=== PATIENT | male | born 1950 | race Caucasian/White ===

== ENCOUNTER 2018-07-16 10:44 | Inpatient (IN) ==
[2018-07-16] MEDS ORDERED: *HR* FentaNYL (PF) 100 MCG/2 ML VIAL ONE (10:58)
[2018-07-16] MEDS ORDERED: *HR* Succinylcholine 200 MG/10 ML VIAL IVP ONE (10:58)
[2018-07-16] MEDS ORDERED: *HR* Propofol 200 MG/20 ML VIAL IVP ONE (10:58)
[2018-07-16] MEDS ORDERED: *HR* Rocuronium Bromide 50 MG/5 ML VIAL ONE ×2 (10:58→16:19)
[2018-07-16] MEDS ORDERED: Lidocaine -MPF 2% 2 ML VIAL ONE (10:58)
[2018-07-16] MEDS ORDERED: Ondansetron 4 MG/2 ML VIAL ONE (10:58)
[2018-07-16] MEDS ORDERED: Dexamethasone 4 MG/ML VIAL ONE (10:58)
[2018-07-16] MEDS ORDERED: *HR* Midazolam HCl 2 MG/2 ML VIAL ONE (10:58)
--- NOTE | 2018-07-16 10:58 | Anesthesia Evaluation PreOp ---
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: Other (depression, anxiety) Other Medical History: Other (gastric ulcer) Anesthesia History: No Prior Anesthetic Complications, Past Anesthesia ( prostate bx, eye, back, carpal tunnel) Alcohol Use: none Drug use: marijuana Medications and Allergies Alprazolam [Xanax] 2 mg PO QID PRN 05/29/18 [History] Atorvastatin [Lipitor] 40 mg PO HS 05/29/18 [History] Escitalopram [Lexapro] 20 mg PO DAILY 05/29/18 [History] HYDROcodone/Acet 5/325 mg [[place] 5-325 mg] 1 tab PO Q4H PRN 3 Days #10 tab 05/29 [Rx] Levofloxacin [Levaquin] 500 mg PO DAILY #3 tablet 05/29/18 [Rx] Omeprazole [PriLOSEC] 20 mg PO DAILY 05/29/18 [History] 3 Allergy/AdvReac Type Severity Reaction Status Date / Time Sulfa (Sulfonamide AdvReac Itching Verified 07/03/18 14:01 Antibiotics) - Meds/Allergy Pre-op Review Medications Reviewed: Yes Allergies Reviewed: Yes Beta Blockers on Current Med List: No Anesthesia Results - Labs Laboratory Tests 05/21/18 07/03/18 13:50 14:07 WBC 7.0 Hgb 14.2 Hct 41.3 Plt Count 244 Sodium 138 Potassium 3.6 Chloride 106 Carbon Dioxide 27 BUN 10 Anesthesia Exam O2 Sat Height 1.8 m Height 1.8 m Weight 97.069 kg Weight 97.069 kg O2 Sat by Pulse Oximetry 95 Vital Signs Temp Pulse Resp BP Pulse Ox 98.1 F 74 18 108/76 95 07/16/18 11:00 07/16/18 11:00 07/16/18 11:00 07/16/18 11:00 07/16/18 11:00 Height: 5'11" Weight: 214lbs NPO (# of Hours): >8 - HEENT Pupil (Motor): Pupils equal, EOMI Mallampati: III (full bermeo) Teeth: Edentulous Oral Opening: Greater than 3 - 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
[2018-07-16] MEDS ORDERED: Acetaminophen IV 1,000 MG/100 ML INFUS..BTL ONE (11:09)
[2018-07-16] MEDS ORDERED: *HR* Morphine 2 MG/ML SYRINGE IVP PRN (11:18)
[2018-07-16] MEDS ORDERED: Ondansetron 4 MG/2 ML VIAL IVP ONE (11:18)
[2018-07-16] MEDS ORDERED: *HR* Promethazine 25 MG/ML VIAL IVP PRN (11:18)
[2018-07-16] MEDS ORDERED: Dexamethasone 4 MG/ML VIAL IVP ONE (11:18)
[2018-07-16] MEDS ORDERED: *HR* Labetalol 100 MG/20 ML MDV IVP PRN (11:18)
[2018-07-16] MEDS ORDERED: Albuterol 2.5 MG/3 ML NEBULIZER IH ONE (12:01)
[2018-07-16] MEDS ORDERED: CeFAZolin Syr 2,000MG/20 ML 2,000 MG/20 ML SYRINGE IVPB ONE (12:01)
[2018-07-16] MEDS ORDERED: Ringers Solution, Lactated 1,000 ML IVC SCH (12:15)
--- NOTE | 2018-07-16 13:10 | History & Physical Report ---
Date of Encounter: 07/16/18 Time of Encounter: 13:09 24 Hour HP Update - Instructions Instructions: If the History and Physical is less than 30 days old and was completed prior to A.M. admission and or procedure and has NOT been updated on calendar day of procedure please complete this update prior to performing procedure. - Update Patient reports changes in Medical Condition: No Changes in examination, assessment, or condition: No Changes in Medication: No Preop tests/diagnostics Reviewed: Yes Surgery Remains Indicated: Yes Consent for Planned Operative Procedure(s) Verified: Yes - Pre-Operative Checklist Preoperative Checklist Indicated: Yes Prophylactic Antibiotic Ordered: Yes Home Medications Include Beta Cassie: No Is VTE Prophylaxis Indicated?: Yes
[2018-07-16] MEDS ORDERED: Neostigmine Methylsulfate 3 MG/3 ML SYRINGE ONE (15:07)
[2018-07-16] MEDS ORDERED: *HR* Morphine 10 MG/ML VIAL ONE (15:07)
--- NOTE | 2018-07-16 18:52 | Operative Note ---
Date of procedure: 07/16/18 Pre-op diagnosis: Benign prostatic hyperplasia with lower urinary tract symptoms Post-op diagnosis: same Procedure: Robotic assisted suprapubic prostatectomy. Implants: 22-Tunisian 3-way catheter, 19-Tunisian Bahman drain Complications: None Anesthesia: GETA Surgeon: Aaron Martinez Was there an autopsy assistant present: Yes Residential Pest Control Technician: Terell Alaniz Residential Pest Control Technician Other: Zoë Palmer Estimated blood loss (cc): 500 Specimen: prostate Condition: stable Disposition: PACU Procedure in Detail: Indications: Mr. June is a 68-year-old gentleman who has a history of BPH and lower urinary tract symptoms. He did have an elevated PSA with an MRI the prostate showing a 143 mL gland. He had a prostate biopsy which was benign. He has severe urinary symptoms and wishes to proceed with a robotic-assisted suprapubic prostatectomy. He is aware of the risks of the surgery which include but are not limited to bleeding, infection, injury or structures, need for further procedures, bladder neck contracture, urethral stricture, possible spread of prostate cancer, urinary incontinence, detrusor overactivity, urine leak, and the risk of anesthesia. He is willing to proceed. PROCEDURE: After informed consent was obtained, the patient was taken to the operating room, placed supine on the table. He was given IV antibiotics for antibiotic coverage. He had LEANNA's and SCD's placed on the lower extremities for DVT prophylaxis. Induction of general anesthesia was performed. The arms were tucked and he was placed in lithotomy position. He was secured to the OR table with padding. An 18 Tunisian Chung catheter was placed. A 5 mm incision was made for our autopsy assistant port in the left upper quadrant. The Veress needle was introduced. The water drop test passed. Pneumoperitoneum was initiated with low pressures initially. The abomen was insufflated. I then placed a 5mm camera port through this incision using the visual obturator and the 5 mm laparoscopic camera.. Once the trocar was in place, I assessed the abdomen. He previously had a midline incision. There was adhesions along the midline. I robotic port was placed lateral to the umbilicus as well as in the left lower quadrant. Using sharp dissection the adhesions were taken down. The other robotic ports were placed 2 along the right side. The left lower quadrant port was exchanged for the air seal. Once all the adhesions were taken down the robot was brought in and docked to the patient. The bipolar [place] was in the left robotic arm and the Prograsp in the 4th arm. We initially retracted the bowel with the 4th arm. The medial umbilical ligaments were cauterized and the bladder was taken down off the anterior abdominal wall using electrocautery. The bladder was then grasped with a 4th arm and retracted cephalad. We then swept the periprostatic fat off the prostate as well as the pelvic sidewall. The bladder neck was identified. I made my incision approximately 2 cm proximal from the bladder neck. The bladder was entered and opened fully and a transverse fashion. The catheter was identified below. A 2-0 Vicryl suture was placed along the posterior bladder neck to provide anterior traction. The ureteral orifices were identified. Incision was made around the bladder neck. The prostate was dissected out and enucleated. There was a fair amount of bleeding during this time. I eventually had to cut the prostate in half along the anterior commissure. This allowed me to remove the left lateral lobe as well as the right lateral lobe. There was not a significant median lobe. Once the prostate was removed we proceeded to bring the bladder neck down to the urethra. Using a 30 V-Leticia suture I brought the posterior bladder neck down to the urethra. The pedicles were closed on the left side with a 30 V-Leticia suture in a [id number] fashion. The right pedicle was not bleeding at all. No stitch was placed. I then identified a tear within the anterior prosthetic capsule. This was run closed using a 3-0 Vicryl suture in a running fashion. This appeared to be watertight. The bladder was closed in 2 layers using a V-Leticia suture for the bladder urothelial layer. In addition a 2-0 V-Leticia suture was used for the muscle layer. I placed a 22-Tunisian 3-way catheter but had difficulty. Ultimately, I placed a Berenstein catheter which entered the bladder. A wire was placed. The Chung was placed over top of the wire. 45 mL was instilled in the balloon. The catheter irrigated clear. The bladder was irrigated. No leak was identified. A 19 Tunisian Bahman drain was placed through the trocar down into the pelvis. The trocar was removed and drain sewn in place with a suture. the prostate was placed in an Endo Catch bag. The robot was then undocked from the patient. the string from the Endo Catch bag was brought to the umbilical port. After extending the incision slightly with the electrocautery the EndoCatch bag was then removed from the camera port. The abdominal fascia was then closed in running fashion with 0 Vicryl suture. All incisions were instilled with 0.25% Marcaine. The remaining trocars were removed under direct vision and all incisions were then closed with 4-0 Monocryl in subcuticular fashion. The patient was then awakened from general anesthesia and brought to the recovery room in good condition. All sponge, needle, and instrument counts were correct.
[2018-07-16] MEDS ORDERED: Acetaminophen 325 MG TABLET PO PRN (19:52)
[2018-07-16] MEDS ORDERED: Ondansetron 4 MG/2 ML VIAL IVP PRN (19:52)
[2018-07-16] MEDS ORDERED: Naloxone 0.4 MG/ML INJ IVP PRN (19:52)
--- NOTE | 2018-07-16 19:55 | Anesthesia Evaluation Post Op ---
Date of Encounter: 07/16/18 Time of Encounter: 19:15 - Vital Signs Vital Signs: Vital Signs/O2 Sat/Glucose, Most Current Temp Pulse Resp BP Pulse Ox 07/16/18 19:22 98.2 F 67 16 144/77 95 07/16/18 19:12 97.9 F 67 16 142/73 99 07/16/18 19:02 97.9 F 79 16 174/90 99 07/16/18 18:52 97.9 F 89 16 182/98 99 - Lungs Lungs: Clear Ascult./Percussion - Airway Airway: Non-obstructed - Cardiovascular Regular Rate - Mental Status Mental Status: Alert & Oriented, Answers Appropriately - Pain Pain Scale: 0 (Denies pain) Pain Scale used: Numeric (1 - 10) - Nausea Vomiting Nausea Vomiting: Not Present - Hydration Hydration: Ice chips, Chung catheter - Discharge PostOp Status: Transfer Patient to floor Anes Supervising Prov Stmt: Pt seen/evaluated, VSS and has met criteria for discharge to home. - MD Carmela
[2018-07-16] MEDS: OXYCODONE Oral CONC 10 MG/0.5 ML ORAL.SYG SL PRN (21:56)
[2018-07-16] MEDS: 0.9 % Sodium Chloride 1,000 ML IVC SCH (21:56)
[2018-07-17] MEDS: ALPRAZolam 1 MG TABLET PO PRN ×3 (00:19→21:44)
[2018-07-17] MEDS: OXYCODONE Oral CONC 10 MG/0.5 ML ORAL.SYG SL PRN ×2 (04:28→11:08)
[2018-07-17] MEDS: 0.9 % Sodium Chloride 1,000 ML IVC SCH ×2 (05:39→15:47)
[2018-07-17 05:45] LABS: Hematocrit 40.1 % (37.5-50.1); Hemoglobin 13.5 g/dL (12.9-16.9); Mean Corpuscular HGB Conc 33.7 g/dL (31.6-35.5); Mean Corpuscular Hemoglobin 31.7 pg (28.0-33.3); Mean Corpuscular Volume 94.1 fL (83.0-100.0); Mean Platelet Volume 10.3 fL (9.4-12.4); Platelet Count 218 K/mcL (140-400); Red Blood Count 4.26 M/mcL (4.19-5.50); Red Cell Distribution Width 12.3 % (11.5-14.5)
[2018-07-17] MEDS: *HR* Heparin 5,000 UNIT/ML VIAL SQ SCH ×2 (05:59→17:41)
[2018-07-17 06:11] LABS: BUN/Creatinine Ratio 13 (6-26); Blood Urea Nitrogen 14 mg/dL (8-23); Calcium 8.4 mg/dL (8.6-10.3); Carbon Dioxide 24 mEq/L (23-29); Chloride 105 mEq/L (98-107); Glucose 150 mg/dL (70-105); Osmolality,Calculated 281 (280-300); Potassium 5.2 mEq/L (3.5-5.1); Sodium 134 mEq/L (136-145); eGFR For Non-African Americans > 60 (> 60)
--- NOTE | 2018-07-17 06:39 | Urology Progress Note ---
Date of Encounter: 07/17/18 Time of Encounter: 06:37 - Assessment and Plan (1) BPH w urinary obs/LUTS Current Visit: Yes Status: Acute Assessment and plan: 68-year-old man status post robotic-assisted simple prostatectomy. Postoperative day #1. 1. Continue to slow down CBI. 2. Continue TERRI today. 3. He can be out of bed to chair while the CBI is running. 4. Advance diet as tolerated. 5. H&H is stable. Creatinine is okay. Progress Note Narrative: Doing well today. Pain is adequately controlled. He is breathing well. Urine is clearing and is on moderate CBI. He denies issues at this time. Objective Initial Vital Signs Temp Pulse Resp BP Pulse Ox 98.1 F 74 18 108/76 95 07/16/18 11:00 07/16/18 11:00 07/16/18 11:00 07/16/18 11:00 07/16/18 11:00 - General physical appearance Present: well developed, well nourished, no distress - Respiratory Present: normal respiratory effort - Abdomen Present: soft (Appropriately tender, not distended, incisions are clean, dry, and intact. TERRI with serosanguineous drainage.) - Genitourinary Present: normal penis with no external lesions (Chung catheter in place with clear to light pink urine on moderate CBI.) - Integumentary Present: no rash - Labs 07/17/18 05:19 07/17/18 05:19 Diabetes panel 07/17/18 Range/Units 05:19 Sodium 134 L (136-145) mEq/L Potassium 5.2 H (3.5-5.1) mEq/L Chloride 105 (98-107) mEq/L Carbon Dioxide 24 (23-29) mEq/L BUN 14 (8-23) mg/dL Creatinine 1.04 (0.70-1.30) mg/dL Glucose 150 H (70-105) mg/dL Calcium 8.4 L (8.6-10.3) mg/dL Calcium panel 07/17/18 Range/Units 05:19 Calcium 8.4 L (8.6-10.3) mg/dL Pituitary panel 07/17/18 Range/Units 05:19 Sodium 134 L (136-145) mEq/L Potassium 5.2 H (3.5-5.1) mEq/L Chloride 105 (98-107) mEq/L Carbon Dioxide 24 (23-29) mEq/L BUN 14 (8-23) mg/dL Creatinine 1.04 (0.70-1.30) mg/dL Glucose 150 H (70-105) mg/dL Calcium 8.4 L (8.6-10.3) mg/dL Adrenal panel 07/17/18 Range/Units 05:19 Sodium 134 L (136-145) mEq/L Potassium 5.2 H (3.5-5.1) mEq/L Chloride 105 (98-107) mEq/L Carbon Dioxide 24 (23-29) mEq/L BUN 14 (8-23) mg/dL Creatinine 1.04 (0.70-1.30) mg/dL Glucose 150 H (70-105) mg/dL Calcium 8.4 L (8.6-10.3) mg/dL - VTE Documentation of Mechanical Device: Intermittent pneumatic compression device Consult Discharge Plan - Plan [facility]errals: [facility] [Primary Care Provider] -
[2018-07-17] MEDS: *HR* OxyCODONE Immed Rel 5 MG TABLET PO PRN ×2 (15:55→21:44)
[2018-07-18] MEDS: 0.9 % Sodium Chloride 1,000 ML IVC SCH ×4 (00:07→20:38)
[2018-07-18] MEDS: *HR* Heparin 5,000 UNIT/ML VIAL SQ SCH ×2 (05:49→18:22)
[2018-07-18] MEDS: ALPRAZolam 1 MG TABLET PO PRN (08:17)
[2018-07-18] MEDS: OXYCODONE Oral CONC 10 MG/0.5 ML ORAL.SYG SL PRN (11:07)
--- NOTE | 2018-07-18 11:20 | Urology Progress Note ---
Date of Encounter: 07/18/18 Time of Encounter: 10:45 - Assessment and Plan (1) BPH w urinary obs/LUTS Current Visit: Yes Status: Acute Assessment and plan: Patient is a 68 year old male who is two days status post Robotic assisted suprapubic prostatectomy. Patient is feeling well with no new concerns. Will continue to monitor and consider discharge tomorrow morning. Progress Note Subjective: no new complaints Narrative: Patient seen and examined lying in bed. No apparent distress. No new complaints. Catheter indwelling and draining sufficiently. Urine is transparent fruit punch with scant sediment. Objective Initial Vital Signs Temp Pulse Resp BP Pulse Ox 98.1 F 74 18 108/76 95 07/16/18 11:00 07/16/18 11:00 07/16/18 11:00 07/16/18 11:00 07/16/18 11:00 - General physical appearance Present: well developed, no distress - Respiratory Present: normal expansion - Abdomen Present: soft, non tender - Genitourinary Urine Appearance: Present: Clear, Sediment, Hematuria - Integumentary Present: no rash, no abnormal pigmentation - Musculoskeletal Present: normal posture - Psychiatric Present: oriented to time, oriented to person, oriented to place, speech is normal - Labs 07/17/18 05:19 07/17/18 05:19 - VTE Documentation of Mechanical Device: Intermittent pneumatic compression device Consult Discharge Plan - Plan Referrals: [facility] [Primary Care Provider] -
[2018-07-18] MEDS: *HR* OxyCODONE Immed Rel 5 MG TABLET PO PRN (22:27)
[2018-07-19] MEDS: 0.9 % Sodium Chloride 1,000 ML IVC SCH (03:22)
[2018-07-19 03:44] LABS: Basophils # 0.1 K/mcL (0.0-0.2); Basophils % 0.5 %; Eosinophils # 0.1 K/mcL (0.0-0.6); Eosinophils % 0.9 %; Hematocrit 33.4 % (37.5-50.1); Immature Granulocytes % 0.5 % (0-4); Mean Corpuscular HGB Conc 32.9 g/dL (31.6-35.5); Mean Corpuscular Hemoglobin 30.5 pg (28.0-33.3); Mean Corpuscular Volume 92.5 fL (83.0-100.0); Mean Platelet Volume 10.2 fL (9.4-12.4); Monocytes # 0.9 K/mcL (0.0-1.3); Monocytes % 6.4 %; Neutrophils # 10.9 K/mcL (1.6-8.9); Platelet Count 199 K/mcL (140-400); Red Blood Count 3.61 M/mcL (4.19-5.50); Red Cell Distribution Width 12.4 % (11.5-14.5); Segmented Neutrophils % 77.7 %
[2018-07-19 04:02] LABS: Alanine Aminotransferase 11 Units/L (7-52); Albumin 3.1 g/dL (3.5-5.7); Albumin/Globulin Ratio 1.6 (1.1-2.2); Alkaline Phosphatase 98 Units/L (34-104); Aspartate Amino Transferase 37 Units/L (13-39); BUN/Creatinine Ratio 8 (6-26); Bilirubin,Total 0.8 mg/dL (0.3-1.0); Blood Urea Nitrogen 11 mg/dL (8-23); Calcium 8.2 mg/dL (8.6-10.3); Carbon Dioxide 23 mEq/L (23-29); Chloride 107 mEq/L (98-107); Glucose 118 mg/dL (70-105); Osmolality,Calculated 282 (280-300); Potassium 3.8 mEq/L (3.5-5.1); Sodium 136 mEq/L (136-145); Total Protein 5.1 g/dL (6.4-8.9); eGFR For Non-African Americans 52 (> 60)
[2018-07-19] MEDS: *HR* Heparin 5,000 UNIT/ML VIAL SQ SCH (05:40)
[2018-07-19] MEDS: ALPRAZolam 1 MG TABLET PO PRN (07:59)
--- NOTE | 2018-07-19 09:57 | Urology Progress Note ---
Date of Encounter: 07/19/18 Time of Encounter: 09:55 - Assessment and Plan (1) BPH w urinary obs/LUTS Current Visit: Yes Status: Acute Assessment and plan: Patient is a 68 year old male who is 3 days status post robotic assisted suprapubic prostatectomy. Patient is feeling well and anticipating discharge. Creatinine slightly increased. Patient underwent renal ultrasound revealing mild dilation in the collecting system. Bahman drain successfully removed without difficulty. Will discuss discharge plan with Dr. Martinez. Progress Note Subjective: no new complaints Narrative: POD #3. Patient seen and examined lying in bed. States pain is well controlled at present. Tolerating normal diet. Urine clearing in catheter tubing. Denies significant pain, chest pain, dyspnea, flank pain, fever, chills. Objective Initial Vital Signs Temp Pulse Resp BP Pulse Ox 98.1 F 74 18 108/76 95 07/16/18 11:00 07/16/18 11:00 07/16/18 11:00 07/16/18 11:00 07/16/18 11:00 - General physical appearance Present: well developed, no distress, no pain - Respiratory Present: normal expansion, normal respiratory effort - Abdomen Present: soft, non tender, surgical scars, wound (incision sites clean, dry, intact ) - Genitourinary Urine Appearance: Present: Hematuria (urine in tubing is orange/pink tinge and transparent ) - Integumentary Present: no rash, no abnormal pigmentation - Psychiatric Present: oriented to time, oriented to person, oriented to place, speech is normal, memory intact - Labs 07/19/18 03:16 07/19/18 03:16 Diabetes panel 07/19/18 Range/Units 03:16 Sodium 136 (136-145) mEq/L Potassium 3.8 (3.5-5.1) mEq/L Chloride 107 (98-107) mEq/L Carbon Dioxide 23 (23-29) mEq/L BUN 11 (8-23) mg/dL Creatinine 1.36 H (0.70-1.30) mg/dL Glucose 118 H (70-105) mg/dL Calcium 8.2 L (8.6-10.3) mg/dL AST 37 (13-39) Units/L ALT 11 (7-52) Units/L Alkaline Phosphatase 98 (34-104) Units/L Albumin 3.1 L (3.5-5.7) g/dL Calcium panel 07/19/18 Range/Units 03:16 Calcium 8.2 L (8.6-10.3) mg/dL Albumin 3.1 L (3.5-5.7) g/dL Pituitary panel 07/19/18 Range/Units 03:16 Sodium 136 (136-145) mEq/L Potassium 3.8 (3.5-5.1) mEq/L Chloride 107 (98-107) mEq/L Carbon Dioxide 23 (23-29) mEq/L BUN 11 (8-23) mg/dL Creatinine 1.36 H (0.70-1.30) mg/dL Glucose 118 H (70-105) mg/dL Calcium 8.2 L (8.6-10.3) mg/dL Adrenal panel 07/19/18 Range/Units 03:16 Sodium 136 (136-145) mEq/L Potassium 3.8 (3.5-5.1) mEq/L Chloride 107 (98-107) mEq/L Carbon Dioxide 23 (23-29) mEq/L BUN 11 (8-23) mg/dL Creatinine 1.36 H (0.70-1.30) mg/dL Glucose 118 H (70-105) mg/dL Calcium 8.2 L (8.6-10.3) mg/dL Total Bilirubin 0.8 (0.3-1.0) mg/dL AST 37 (13-39) Units/L ALT 11 (7-52) Units/L Alkaline Phosphatase 98 (34-104) Units/L Albumin 3.1 L (3.5-5.7) g/dL - VTE Documentation of Mechanical Device: Intermittent pneumatic compression device Consult Discharge Plan - Plan Referrals: [facility] [Primary Care Provider] -
[2018-07-19 10:11] VITALS: BP 135/76
--- NOTE | 2018-07-19 10:52 | Discharge Summary ---
Orders not resulted at time of discharge: Pending orders 07/16/18 18:43 Surgical Pathology [PTH] Routine Date of Encounter: 07/19/18 Time of Encounter: 10:54 - Discharge Diagnosis (1) BPH w urinary obs/LUTS Priority: Primary Status: Acute - Hospital Course Hospital course: Mr. June is a 68 year old male who presents with a history of benign prostatic hyperplasia and lower urinary tract symptoms. On June, the patient was taken to the operating room where he underwent a robotic assisted suprapubic prostatectomy. There were no complications, and the patient tolerated the procedure well. His postoperative course has included continued hematuria, which has improved and most likely residual from the prostatic fossae. The patient experienced a slight elevation in serum creatinine on postoperative day three, but renal ultrasound was reassuring. The patient is progressing back to baseline and anticipating discharge. He is dismissed in satisfactory condition and been counseled on postoperative restrictions, activities, and follow up. Time spent discussing smoking cessation with patient: 3 to 10 minutes - Time Spent with Patient Total time spent providing and/or coordinating discharge services: Less than 30 minutes Procedures and tests throughout hospitalization: Robotic assisted suprapubic prostatectomy Labs on day of discharge: Labs from last 24 hours 07/19/18 07/19/18 03:16 03:16 WBC 14.0 H RBC 3.61 L Hgb 11.0 L D Hct 33.4 L MCV 92.5 MCH 30.5 MCHC 32.9 RDW 12.4 Plt Count 199 MPV 10.2 Immature Gran % 0.5 Seg Neutrophils % 77.7 Lymphocytes % 14.0 Monocytes % 6.4 Eosinophils % 0.9 Basophils % 0.5 Neutrophils # 10.9 H Lymphocytes # 2.0 Monocytes # 0.9 Eosinophils # 0.1 Basophils # 0.1 Sodium 136 Potassium 3.8 Chloride 107 Carbon Dioxide 23 BUN 11 Creatinine 1.36 H Est GFR ( Amer) > 60 Est GFR (Non-Af Amer) 52 L BUN/Creatinine Ratio 8 Glucose 118 H Calculated Osmolality 282 Calcium 8.2 L Total Bilirubin 0.8 AST 37 ALT 11 Alkaline Phosphatase 98 Serum Total Protein 5.1 L Albumin 3.1 L Globulin 2.0 L Albumin/Globulin Ratio 1.6 - Impressions ITS Impressions Retroperitoneum Ultrasound 07/19/18 06:46 IMPRESSION: Exam limited by body habitus. Mild renal collecting system dilation is suspected bilaterally. Consider further evaluation with CT imaging. D/ / Darrell Cartagena MD / Darrell Cartagena MD Interpreting Provider: Darrell Cartagena MD - Discharge Medications Prescriptions: Docusate Sodium [Colace] 100 mg PO BID #60 capsule Oxycodone HCl/Acetaminophen [Percocet 5-325 mg Tablet] 1 each PO Q6H 5 Days #20 tablet Home Medications: Alprazolam [Xanax] 2 mg PO QID PRN 05/29/18 [History] Atorvastatin [Lipitor] 40 mg PO DAILY 05/29/18 [History] Escitalopram [Lexapro] 20 mg PO DAILY 05/29/18 [History] Omeprazole [PriLOSEC] 20 mg PO DAILY 05/29/18 [History] Docusate Sodium [Colace] 100 mg PO BID #60 capsule 07/19/18 [Rx] Oxycodone HCl/Acetaminophen [Percocet 5-325 mg Tablet] 1 each PO Q6H 5 Days #20 tablet 07/19/18 [Rx] Allergies/Adverse Reactions: 3 Allergy/AdvReac Type Severity Reaction Status Date / Time Sulfa (Sulfonamide AdvReac Itching Verified 07/03/18 14:01 Antibiotics) Date of admission: 07/16/18 19:50 [facility] physician: [facility] Consults: 07/17/18 02:10 Consult to Physical Therapy [CONS] Routine Comment: Evaluate, develop and implement POC Reason for Consult: ambulation assistance Does patient have active BEDREST order?: No Is patient medically & hemodynamically stable?: Yes Patient assessed for mobility or mobilized this visit?: No Discharging clinician: Zoë Palmer Anticipated date of discharge: 07/19/18 Exam Initial Vital Signs Temp Pulse Resp BP Pulse Ox 98.1 F 74 18 108/76 95 07/16/18 11:00 07/16/18 11:00 07/16/18 11:00 07/16/18 11:00 07/16/18 11:00 - General physical appearance Present: well developed, no distress, no pain - Eyes Present: PERRL, normal ocular movement - ENT Present: normal nares, no hearing loss - Neck Present: no masses, trachea midline - Respiratory Present: normal respiratory effort - Cardiovascular Cardiovascular exam IM: RRR - Abdomen Abdomen: Present: soft, non tender, wound (primary incisions clean, dry, intact ; dressing applied to drain site ). Absent: guarding, rigid, distended - Integumentary Present: no rash, no abnormal pigmentation - Neurologic Present: normal coordination. Absent: disoriented - Patient Status Disposition: Home, Self-Care Condition: Good Functional capacity at discharge: independent ambulation Overall status at discharge: patient is progressing back to baseline - Discharge Instructions Follow Up With: [facility] [Primary Care Provider] - Aaron Martinez MD [Partnered Physician] - Additional Instructions: Call if fever >101.5 degrees Ok to shower. No swimming or tub baths. No heavy lifting >15lbs and no heavy activity. Follow up in 3 weeks for voiding trial and possible catheter removal. - Diet and Activity Activity: increase activity as tolerated Diet: advance to your usual diet - VTE Documentation of Mechanical Device: Intermittent pneumatic compression device
== END 2018-07-19 13:26 | disposition home or self-care (01) | DRG 707 ==
LOC: SAMDAY 10:44 → 3ANU 19:50
PROVIDERS: ADMIT Urology; ATTEND Urology